=== PATIENT | male | born 1970 | race Caucasian/White ===

== ENCOUNTER → 2024-06-01 | Outpatient (CLI) | payer OTHER, SELFPAY ==
[2024-06-01 08:00] LABS: Collection Type, Urine Clean Catch; Squamous Epithelial Cell,Urine 0 /hpf (0-5)
[2024-06-01 08:29] LABS: Bilirubin,Urine Negative (Negative); Blood,Urine Negative (Negative); Clarity,Urine Clear (Clear/Hazy); Color,Urine Lt-Yellow (Lt Yel-Yel); Glucose, Urine Negative (Negative); Ketones,Urine Negative (Negative); Leukocyte Esterase,Urine Negative (Negative); Nitrite,Urine Negative (Negative); PH,Urine 5.5 (5.0-7.0); Protein,Urine 1+ (Neg - Trace); RBC,Urine 3 /hpf (0-3); Specific Gravity,Urine 1.018 (1.001-1.035); Urobilinogen,Urine Negative mg/dL (0.0-1.0); WBC,Urine 2 /hpf (0-5)
[2024-06-01 08:35] LABS: Glucose Estimated Average 105 mg/dL (80-131); Hemoglobin A1C 5.3 % Hgb (4.8-6.0)
[2024-06-01 08:36] LABS: Basophils % (Auto) 1 % (0-2.5); Eosinophils # (Auto) 0.3 Thou/mm3 (0.0-0.5); Eosinophils % (Auto) 4 % (0-10); Hematocrit 36.2 % (41.0-53.0); Immature Granulocytes % (Auto) 1 % (0-0); Immature Granulocytes Auto 0.04 Thou/mm3 (0.00-0.00); Lymphocytes # (Auto) 1.6 Thou/mm3 (1.0-4.8); Lymphocytes % (Auto) 21 % (10-50); Mean Corpuscular HGB Conc 33.1 g/dl (31.0-37.0); Mean Corpuscular Hemoglobin 29.2 pg (25.0-35.0); Mean Corpuscular Volume 88 fL (80-100); Monocytes # (Auto) 0.6 Thou/mm3 (0.0-0.8); Monocytes % (Auto) 8 % (0-12); Neutrophils % (Auto) 66 % (37-80); Nucleated Red Blood Cell % 0 /100 WBC (0); Platelet Count 190 Thou/mm3 (140-440); RDW Standard Deviation 43.3 fL (35.1-43.9); Red Blood Count 4.11 Miln/mm3 (4.50-5.90); White Blood Count 7.5 Thou/mm3 (3.8-10.6)
[2024-06-01 08:45] LABS: Creatinine MALB Rnd Ur 124 mg/dL (30-125); Microalbumin Creat Ratio 138 mg/gCrea (<30); Microalbumin, Random Urine 171 mg/L (0-300)
[2024-06-01 08:47] LABS: Alanine Aminotransferase 20 U/L (10-49); Albumin, Serum 4.6 gm/dL (3.5-5.0); Alkaline Phosphatase 53 U/L (46-116); Anion Gap 5 (7-16); Aspartate Amino Transferase 17 U/L (0-34); BUN/Creatinine Ratio 12 Ratio (12-20); Bilirubin,Total 0.6 mg/dL (0.3-1.2); Blood Urea Nitrogen 20 mg/dL (9-23); Calcium 10.8 mg/dL (8.3-10.6); Calcium (Corrected) 10.8 mg/dL (8.5-10.1); Carbon Dioxide 26.6 mMol/L (20.0-31.0); Cardiac Risk Estimate 5.8 RATIO (4.0-6.7); Chloride 104 mMol/L (98-107); Cholesterol 134 mg/dL (132-200); Creatinine (Component) 1.7 mg/dL (0.6-1.3); Globulin 2.3 gm/dL (2.3-3.5); Glucose 106 mg/dL (74-106); HDL Cholesterol 23 mg/dL (40-60); LDL Cholesterol,Calculated 55 mg/dL (0-130); Osmolality,Calculated 274 (275-295); Potassium 5.1 mMol/L (3.4-5.1); Sodium 136 mMol/L (136-145); Total Protein 6.9 gm/dL (5.7-8.2); Triglycerides 278 mg/dL (30-150); eGFR 47 See Note
== END | disposition home or self-care (01) ==
PROVIDERS: PCP Internal Medicine; Referring Provider Internal Medicine; Visit Provider Internal Medicine
DX: N17.9 Acute kidney failure, unspecified (principal); I10 Essential (primary) hypertension; E78.5 Hyperlipidemia, unspecified; E11.9 Type 2 diabetes mellitus without complications
CPT/HCPCS: 36415; 80053; 80061; 81001; 82043; 82570; 83036; 85025

== ENCOUNTER → 2024-10-06 | Outpatient (CLI) | payer OTHER, SELFPAY ==
[2024-10-06 11:00] LABS: Collection Type, Urine Clean Catch
[2024-10-06 11:20] LABS: Basophils % (Auto) 1 % (0-2.5); Eosinophils # (Auto) 0.2 Thou/mm3 (0.0-0.5); Eosinophils % (Auto) 3 % (0-10); Hematocrit 34.8 % (41.0-53.0); Hemoglobin 11.4 g/dL (13.5-16.0); Immature Granulocytes % (Auto) 0 % (0-0); Immature Granulocytes Auto 0.02 Thou/mm3 (0.00-0.00); Lymphocytes # (Auto) 1.6 Thou/mm3 (1.0-4.8); Lymphocytes % (Auto) 22 % (10-50); Mean Corpuscular HGB Conc 32.8 g/dl (31.0-37.0); Mean Corpuscular Volume 86 fL (80-100); Monocytes # (Auto) 0.5 Thou/mm3 (0.0-0.8); Monocytes % (Auto) 7 % (0-12); Neutrophils # (Auto) 4.9 Thou/mm3 (1.8-7.7); Neutrophils % (Auto) 68 % (37-80); Nucleated Red Blood Cell % 0 /100 WBC (0); Platelet Count 141 Thou/mm3 (140-440); RDW Standard Deviation 42.8 fL (35.1-43.9); Red Blood Count 4.07 Miln/mm3 (4.50-5.90); White Blood Count 7.2 Thou/mm3 (3.8-10.6)
[2024-10-06 11:25] LABS: Bilirubin,Urine Negative (Negative); Blood,Urine Negative (Negative); Clarity,Urine Clear (Clear/Hazy); Color,Urine Lt-Yellow (Lt Yel-Yel); Glucose, Urine Negative (Negative); Ketones,Urine Negative (Negative); Leukocyte Esterase,Urine Negative (Negative); Nitrite,Urine Negative (Negative); PH,Urine 6.5 (5.0-7.0); Protein,Urine Trace (Neg - Trace); RBC,Urine 2 /hpf (0-3); Specific Gravity,Urine 1.022 (1.001-1.035); Squamous Epithelial Cell,Urine < 1 /hpf (0-5); Urobilinogen,Urine Negative mg/dL (0.0-1.0); WBC,Urine 1 /hpf (0-5)
[2024-10-06 11:48] LABS: Anion Gap 8 (7-16); BUN/Creatinine Ratio 15 Ratio (12-20); Blood Urea Nitrogen 23 mg/dL (9-23); Calcium 9.1 mg/dL (8.3-10.6); Calcium (Corrected) 9.1 mg/dL (8.5-10.1); Carbon Dioxide 29.7 mMol/L (20.0-31.0); Chloride 102 mMol/L (98-107); Creatinine (Component) 1.5 mg/dL (0.6-1.3); Glucose 140 mg/dL (74-106); Osmolality,Calculated 285 (275-295); Phosphorous 3.4 mg/dL (2.4-5.1); Potassium 4.4 mMol/L (3.4-5.1); Sodium 140 mMol/L (136-145); eGFR 55 See Note
== END | disposition home or self-care (01) ==
LOC: COPL 10:29
PROVIDERS: PCP Internal Medicine; Referring Provider Internal Medicine; Visit Provider Internal Medicine
DX: E11.9 Type 2 diabetes mellitus without complications (principal); I10 Essential (primary) hypertension; E78.5 Hyperlipidemia, unspecified
CPT/HCPCS: 36415; 80069; 81001; 85025

== ENCOUNTER → 2024-12-01 | Outpatient (CLI) | payer OTHER, SELFPAY ==
[2024-12-01 08:14] LABS: Collection Type, Urine Clean Catch; Squamous Epithelial Cell,Urine 0 /hpf (0-5)
[2024-12-01 08:47] LABS: Basophils % (Auto) 1 % (0-2.5); Eosinophils # (Auto) 0.2 Thou/mm3 (0.0-0.5); Eosinophils % (Auto) 3 % (0-10); Hematocrit 34.5 % (41.0-53.0); Hemoglobin 11.8 g/dL (13.5-16.0); Immature Granulocytes % (Auto) 0 % (0-0); Immature Granulocytes Auto 0.03 Thou/mm3 (0.00-0.00); Lymphocytes # (Auto) 1.5 Thou/mm3 (1.0-4.8); Lymphocytes % (Auto) 22 % (10-50); Mean Corpuscular HGB Conc 34.2 g/dl (31.0-37.0); Mean Corpuscular Hemoglobin 28.3 pg (25.0-35.0); Mean Corpuscular Volume 83 fL (80-100); Monocytes # (Auto) 0.5 Thou/mm3 (0.0-0.8); Monocytes % (Auto) 8 % (0-12); Neutrophils # (Auto) 4.5 Thou/mm3 (1.8-7.7); Neutrophils % (Auto) 67 % (37-80); Nucleated Red Blood Cell % 0 /100 WBC (0); Platelet Count 123 Thou/mm3 (140-440); RDW Standard Deviation 40.5 fL (35.1-43.9); Red Blood Count 4.17 Miln/mm3 (4.50-5.90); White Blood Count 6.8 Thou/mm3 (3.8-10.6)
[2024-12-01 08:57] LABS: Bilirubin,Urine Negative (Negative); Blood,Urine Negative (Negative); Clarity,Urine Clear (Clear/Hazy); Color,Urine Lt-Yellow (Lt Yel-Yel); Glucose, Urine Negative (Negative); Ketones,Urine Negative (Negative); Leukocyte Esterase,Urine Negative (Negative); Nitrite,Urine Negative (Negative); Protein,Urine 1+ (Neg - Trace); RBC,Urine 1 /hpf (0-3); Specific Gravity,Urine 1.018 (1.001-1.035); Urobilinogen,Urine Negative mg/dL (0.0-1.0); WBC,Urine 3 /hpf (0-5)
[2024-12-01 08:59] LABS: Glucose Estimated Average 111 mg/dL (80-131); Hemoglobin A1C 5.5 % Hgb (4.8-6.0)
[2024-12-01 09:00] LABS: Creatinine,Random Urine 117 mg/dL (30-125); Protein Total, Random Urine 100 mg/dL (1-14)
[2024-12-01 09:03] LABS: Prostate Specific Antigen 0.75 ng/mL (0-4.00)
[2024-12-01 09:14] LABS: Vitamin B12 406 pg/mL (211-911); Vitamin D 25 Hydroxy Total 24.7 ng/mL (7.3-40.2)
[2024-12-01 09:16] LABS: Alanine Aminotransferase 16 U/L (10-49); Albumin/Globulin Ratio 1.7 (1.2-2.2); Alkaline Phosphatase 82 U/L (46-116); Anion Gap 6 (7-16); Aspartate Amino Transferase 15 U/L (0-34); BUN/Creatinine Ratio 13 Ratio (12-20); Bilirubin,Total 0.5 mg/dL (0.3-1.2); Blood Urea Nitrogen 16 mg/dL (9-23); Calcium 9.4 mg/dL (8.3-10.6); Calcium (Corrected) 9.4 mg/dL (8.5-10.1); Carbon Dioxide 27.6 mMol/L (20.0-31.0); Cardiac Risk Estimate 5.4 RATIO (4.0-6.7); Chloride 105 mMol/L (98-107); Cholesterol 118 mg/dL (132-200); Creatinine (Component) 1.2 mg/dL (0.6-1.3); Globulin 2.4 gm/dL (2.3-3.5); Glucose 88 mg/dL (74-106); HDL Cholesterol 22 mg/dL (40-60); Osmolality,Calculated 277 (275-295); Potassium 4.2 mMol/L (3.4-5.1); Sodium 139 mMol/L (136-145); Total Protein 6.4 gm/dL (5.7-8.2); Triglycerides 417 mg/dL (30-150); Uric Acid 9.2 mg/dL (3.7-9.2); eGFR > 60 See Note
== END | disposition home or self-care (01) ==
LOC: COPL 07:32
PROVIDERS: PCP Internal Medicine; Referring Provider Internal Medicine; Visit Provider Internal Medicine
DX: I12.9 Hypertensive chronic kidney disease with stage 1 through stage 4 chronic kidney disease, or unspecified chronic kidney disease (principal); E11.22 Type 2 diabetes mellitus with diabetic chronic kidney disease; N18.30 Chronic kidney disease, stage 3 unspecified; E78.5 Hyperlipidemia, unspecified
CPT/HCPCS: 36415; 80053; 80061; 81001; 82306; 82570; 82607; 83036; 84153; 84156; 84443; 84550; 85025

== ENCOUNTER → 2024-12-14 | Outpatient (CLI) | payer OTHER, SELFPAY ==
--- NOTE | 2024-12-14 10:45 | XR_ITS ---
Examination: Prostate sonography complete TECHNIQUE: Transabdominal sonographic images prostate Date and time: December 15, 2023 1102 hours INDICATIONS: Diagnosis benign prostatic hypertrophy 3 months with difficulty urinating FINDINGS: Prostate 4.3 x 3.5 x 3.3 cm volume 26 cc No prostate nodules IMPRESSION: Mild to moderate prostatomegaly No prostate nodules
== END | disposition home or self-care (01) ==
LOC: CDIM 10:38
PROVIDERS: PCP Internal Medicine; Referring Provider Internal Medicine; Visit Provider Internal Medicine
DX: N40.0 Benign prostatic hyperplasia without lower urinary tract symptoms (principal)
CPT/HCPCS: 76873

== ENCOUNTER → 2024-12-19 | Outpatient (CLI) | payer OTHER, SELFPAY ==
--- NOTE | 2024-12-19 11:32 | EKG_ITS ---
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
== END | disposition home or self-care (01) ==
PROVIDERS: PCP Plastic Surgery; Referring Provider Plastic Surgery; Visit Provider Plastic Surgery
DX: S63.652A Sprain of metacarpophalangeal joint of right middle finger, initial encounter (principal); X58.XXXA Exposure to other specified factors, initial encounter
CPT/HCPCS: 93005

== ENCOUNTER → 2024-12-26 | Outpatient (CLI) | payer OTHER, SELFPAY ==
[2024-12-26 09:52] LABS: Anion Gap 12 (7-16); BUN/Creatinine Ratio 13 Ratio (12-20); Blood Urea Nitrogen 16 mg/dL (9-23); Calcium 8.7 mg/dL (8.3-10.6); Carbon Dioxide 25.8 mMol/L (20.0-31.0); Chloride 104 mMol/L (98-107); Creatinine (Component) 1.2 mg/dL (0.6-1.3); Glucose 136 mg/dL (74-106); Osmolality,Calculated 286 (275-295); Potassium 4.4 mMol/L (3.4-5.1); Sodium 142 mMol/L (136-145); eGFR > 60 See Note
== END | disposition home or self-care (01) ==
LOC: COPL 07:20
PROVIDERS: Referring Provider Plastic Surgery; Visit Provider Plastic Surgery
DX: Z01.818 Encounter for other preprocedural examination (principal); S63.652A Sprain of metacarpophalangeal joint of right middle finger, initial encounter; X58.XXXA Exposure to other specified factors, initial encounter
CPT/HCPCS: 36415; 80048

== ENCOUNTER → 2025-01-25 | Outpatient (BNVA) | payer OTHER, SELFPAY | END | disposition home or self-care (01) | PROVIDERS: PCP Internal Medicine; Referring Provider Internal Medicine; Visit Provider Urology | DX: N40.1 Benign prostatic hyperplasia with lower urinary tract symptoms (principal); N13.8 Other obstructive and reflux uropathy; Z80.42 Family history of malignant neoplasm of prostate; E11.9 Type 2 diabetes mellitus without complications; E78.5 Hyperlipidemia, unspecified; I11.0 Hypertensive heart disease with heart failure; I50.22 Chronic systolic (congestive) heart failure; E66.9 Obesity, unspecified; Z68.29 Body mass index [BMI] 29.0-29.9, adult; Z86.73 Personal history of transient ischemic attack (TIA), and cerebral infarction without residual deficits; Z87.891 Personal history of nicotine dependence | CPT/HCPCS: 81003; 99212; G0463 ==

== ENCOUNTER → 2025-02-05 | Outpatient (CLI) | payer OTHER, SELFPAY ==
[2025-02-05 13:26] LABS: Anion Gap 10 (7-16); BUN/Creatinine Ratio 18 Ratio (12-20); Blood Urea Nitrogen 21 mg/dL (9-23); Calcium 8.8 mg/dL (8.3-10.6); Carbon Dioxide 24.8 mMol/L (20.0-31.0); Chloride 106 mMol/L (98-107); Creatinine (Component) 1.2 mg/dL (0.6-1.3); Glucose 127 mg/dL (74-106); Osmolality,Calculated 286 (275-295); Potassium 4.2 mMol/L (3.4-5.1); Sodium 141 mMol/L (136-145); eGFR > 60 See Note
== END | disposition home or self-care (01) ==
LOC: COPL 11:55
PROVIDERS: PCP Internal Medicine; Referring Provider Physician Assistant; Visit Provider Physician Assistant
DX: Z01.818 Encounter for other preprocedural examination (principal); S63.652D Sprain of metacarpophalangeal joint of right middle finger, subsequent encounter; X58.XXXD Exposure to other specified factors, subsequent encounter
CPT/HCPCS: 36415; 80048

== ENCOUNTER → 2025-02-06 | Outpatient (CLI) | payer OTHER, SELFPAY | END | disposition home or self-care (01) | LOC: COPL 12:45 | PROVIDERS: PCP Internal Medicine; Referring Provider Internal Medicine; Visit Provider Internal Medicine | DX: Z00.00 Encounter for general adult medical examination without abnormal findings (principal) | CPT/HCPCS: 36415; 86900; 86901 ==

== ENCOUNTER → 2025-04-12 | Outpatient (CLI) | payer OTHER, SELFPAY ==
[2025-04-12 09:08] LABS: Collection Type, Urine Clean Catch; Squamous Epithelial Cell,Urine 0 /hpf (0-5)
[2025-04-12 09:33] LABS: Bilirubin,Urine Negative (Negative); Blood,Urine Trace (Negative); Clarity,Urine Clear (Clear/Hazy); Color,Urine Lt-Yellow (Lt Yel-Yel); Glucose, Urine Negative (Negative); Hyaline Casts,Urine < 1 /hpf (0-1); Ketones,Urine Negative (Negative); Leukocyte Esterase,Urine Negative (Negative); Nitrite,Urine Negative (Negative); PH,Urine 6.0 (5.0-7.0); Protein,Urine 2+ (Neg - Trace); RBC,Urine 1 /hpf (0-3); Specific Gravity,Urine 1.017 (1.001-1.035); Urobilinogen,Urine Negative mg/dL (0.0-1.0); WBC,Urine 2 /hpf (0-5)
[2025-04-12 09:43] LABS: Glucose Estimated Average 128 mg/dL (80-131); Hemoglobin A1C 6.1 % Hgb (4.8-6.0)
[2025-04-12 09:51] LABS: Creatinine,Random Urine 107 mg/dL (30-125)
[2025-04-12 09:52] LABS: Alanine Aminotransferase 12 U/L (10-49); Albumin, Serum 4.2 gm/dL (3.5-5.0); Albumin/Globulin Ratio 2.0 (1.2-2.2); Alkaline Phosphatase 71 U/L (46-116); Anion Gap 8 (7-16); Aspartate Amino Transferase 13 U/L (0-34); BUN/Creatinine Ratio 17 Ratio (12-20); Bilirubin,Total 0.5 mg/dL (0.3-1.2); Blood Urea Nitrogen 33 mg/dL (9-23); Calcium 9.2 mg/dL (8.3-10.6); Calcium (Corrected) 9.2 mg/dL (8.5-10.1); Carbon Dioxide 24.0 mMol/L (20.0-31.0); Cardiac Risk Estimate 5.3 RATIO (4.0-6.7); Chloride 108 mMol/L (98-107); Cholesterol 128 mg/dL (132-200); Creatinine (Component) 2.0 mg/dL (0.6-1.3); Globulin 2.1 gm/dL (2.3-3.5); Glucose 108 mg/dL (74-106); HDL Cholesterol 24 mg/dL (40-60); Osmolality,Calculated 287 (275-295); Potassium 5.3 mMol/L (3.4-5.1); Sodium 140 mMol/L (136-145); Total Protein 6.3 gm/dL (5.7-8.2); Triglycerides 506 mg/dL (30-150); eGFR 38 See Note
== END | disposition home or self-care (01) ==
LOC: COPL 08:09
PROVIDERS: PCP Internal Medicine; Referring Provider Internal Medicine; Visit Provider Internal Medicine
DX: E11.22 Type 2 diabetes mellitus with diabetic chronic kidney disease (principal); I12.9 Hypertensive chronic kidney disease with stage 1 through stage 4 chronic kidney disease, or unspecified chronic kidney disease; N18.30 Chronic kidney disease, stage 3 unspecified; E78.5 Hyperlipidemia, unspecified
CPT/HCPCS: 36415; 80053; 80061; 81001; 82570; 83036

== ENCOUNTER → 2025-04-23 | Outpatient (CLI) | payer OTHER, SELFPAY ==
[2025-04-23 12:42] LABS: Glucose Estimated Average 143 mg/dL (80-131); Hemoglobin A1C 6.6 % Hgb (4.8-6.0)
== END | disposition home or self-care (01) ==
LOC: COPL 11:07
PROVIDERS: PCP Internal Medicine; Referring Provider Internal Medicine; Visit Provider Internal Medicine
DX: E11.9 Type 2 diabetes mellitus without complications (principal)
CPT/HCPCS: 36415; 83036

== ENCOUNTER 2025-05-02 11:50 | Observation (INO) | payer OTHER, SELFPAY ==
[2025-05-02 11:51] VITALS: BMI 30.3
[2025-05-02 11:59] VITALS: BP 116/75; BP 131/82; PULSE 79; RESP 18; TEMP 37.1; O2SAT 98
--- NOTE | 2025-05-02 12:00 | EKG_ITS ---
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
--- NOTE | 2025-05-02 12:27 | XR_ITS ---
Examination: CT brain head without contrast. 2-D sagittal coronal reconstructions Date and time of exam: May 02, 2025, 1412 hours INDICATIONS: Onset blurry vision with headaches today CTDI: vol (mGy): 51.1 DLP: (mGycm): 1054 Technique: Multiple CT axial sections of the brain have been obtained, 5 mm slice thickness. Contrast has not been administered. 2-D sagittal, coronal reconstructions have been obtained Low dose protocols were performed. One or more of the following dose reduction techniques were used; automated exposure control, adjustment of the mA and/or KV according to patient size, use of iterative reconstruction technique. Findings: No significant ventricular enlargement. Intra-axial or extra-axial hemorrhage density is not seen. No mass effect or midline shift Basal cisterns are not remarkable. Fourth ventricle is midline. Cranial vault intact. Impression: Negative for acute hemorrhage, mass effect or midline shift Advise clinical correlation and follow-up accordingly
--- NOTE | 2025-05-02 12:27 | XR_ITS ---
EXAMINATION: PA lateral chest 2 views TECHNIQUE: Upright PA lateral chest 2 views Date and time: May 02, 2025, 1308 hours INDICATIONS: Low blood pressure today. FINDINGS: Normal heart size The lungs are clear. The osseous structures are intact. IMPRESSION: No active disease
--- NOTE | 2025-05-02 12:27 | PD.EDRME ---
Rapid Medical Screening Exam RME Arrival date/time: 05/02/25 11:50 54-year-old male presents to the Emergency Department for complaint of headache blurry vision generalized fatigue patient was referred to ER for further evaluation Chief Complaint: Dizziness Time Seen by Provider: 05/02/25 15:26 Vital signs: Vital Signs Temperature 37.1 C 05/02/25 11:59 Pulse Rate 79 05/02/25 11:59 Respiratory Rate 18 05/02/25 11:59 Blood Pressure 131/82 H 05/02/25 11:59 Pulse Oximetry (%) 98 05/02/25 11:59 Oxygen Delivery Method Room Air 05/02/25 11:59 MD Attestation MD Attestation Patient seen and examined with ANNA Stone. Admitted for BATSHEVA.
[2025-05-02 12:56] LABS: Basophils # (Auto) 0.0 Thou/mm3 (0.0-0.2); Basophils % (Auto) 1 % (0-2.5); Eosinophils # (Auto) 0.3 Thou/mm3 (0.0-0.5); Eosinophils % (Auto) 3 % (0-10); Hematocrit 33.3 % (41.0-53.0); Hemoglobin 11.4 g/dL (13.5-16.0); Immature Granulocytes Auto 0.03 Thou/mm3 (0.00-0.00); Lymphocytes # (Auto) 2.1 Thou/mm3 (1.0-4.8); Lymphocytes % (Auto) 26 % (10-50); Mean Corpuscular HGB Conc 34.2 g/dl (31.0-37.0); Mean Corpuscular Hemoglobin 30.0 pg (25.0-35.0); Mean Corpuscular Volume 88 fL (80-100); Monocytes # (Auto) 0.7 Thou/mm3 (0.0-0.8); Monocytes % (Auto) 8 % (0-12); Neutrophils # (Auto) 5.1 Thou/mm3 (1.8-7.7); Neutrophils % (Auto) 62 % (37-80); Nucleated Red Blood Cell # 0.00 Thou/mm3 (0.00-0.00); Nucleated Red Blood Cell % 0 /100 WBC (0); Platelet Count 127 Thou/mm3 (140-440); RDW Standard Deviation 45.2 fL (35.1-43.9); Red Blood Count 3.80 Miln/mm3 (4.50-5.90); White Blood Count 8.3 Thou/mm3 (3.8-10.6)
[2025-05-02 13:07] LABS: Collection Type, Urine Clean Catch
[2025-05-02 13:13] LABS: INR 1.0 (0.9-1.3); Partial Thromboplastin Time 23.9 Seconds (22.0-36.0); Prothrombin Time 10.3 Seconds (9.0-12.2)
[2025-05-02 13:15] LABS: B-Type Natriuretic Peptide < 20 pg/mL (0-100)
[2025-05-02 13:17] LABS: Alanine Aminotransferase 12 U/L (10-49); Albumin, Serum 4.7 gm/dL (3.5-5.0); Albumin/Globulin Ratio 1.9 (1.2-2.2); Alkaline Phosphatase 86 U/L (46-116); Anion Gap 8 (7-16); Aspartate Amino Transferase 14 U/L (0-34); BUN/Creatinine Ratio 14 Ratio (12-20); Bilirubin,Total 0.8 mg/dL (0.3-1.2); Blood Urea Nitrogen 30 mg/dL (9-23); Calcium 9.7 mg/dL (8.3-10.6); Calcium (Corrected) 9.7 mg/dL (8.5-10.1); Carbon Dioxide 25.5 mMol/L (20.0-31.0); Chloride 106 mMol/L (98-107); Creatinine (Component) 2.2 mg/dL (0.6-1.3); Estimated Creatinine Clearance 38.4 mL/min (>60); Globulin 2.5 gm/dL (2.3-3.5); Glucose 95 mg/dL (74-106); Magnesium 1.5 mg/dL (1.6-2.6); Osmolality,Calculated 283 (275-295); Potassium 4.8 mMol/L (3.4-5.1); Sodium 139 mMol/L (136-145); Total Protein 7.2 gm/dL (5.7-8.2); Troponin I < 0.020 ng/mL (0.0-0.045); eGFR 34 See Note
[2025-05-02 13:18] LABS: Amphetamine/Methamp Scrn,U Negative (Negative); Barbiturate Screen,Urine Negative (Negative); Benzodiazepines Screen,Urine Negative (Negative); Benzoylecgonine Screen, Ur Negative (Negative); Fentanyl Screen,Urine Negative (Negative); Opiate Screen,Urine Negative (Negative); THC Screen,Urine Negative (Negative)
[2025-05-02 13:20] LABS: Bilirubin,Urine Negative (Negative); Blood,Urine Negative (Negative); Clarity,Urine Clear (Clear/Hazy); Color,Urine Colorless (Lt Yel-Yel); Culture Indicated,Urine Not Indicated; Glucose, Urine Negative (Negative); Hyaline Casts,Urine < 1 /hpf (0-1); Ketones,Urine Negative (Negative); Leukocyte Esterase,Urine Negative (Negative); Nitrite,Urine Negative (Negative); PH,Urine 6.0 (5.0-7.0); Protein,Urine 1+ (Neg - Trace); RBC,Urine 4 /hpf (0-3); Specific Gravity,Urine 1.009 (1.001-1.035); Squamous Epithelial Cell,Urine < 1 /hpf (0-5); Urobilinogen,Urine Negative mg/dL (0.0-1.0); WBC,Urine < 1 /hpf (0-5)
[2025-05-02 16:33] VITALS: BP 138/90; PULSE 89; RESP 14; TEMP 36.6; O2SAT 99
--- NOTE | 2025-05-02 16:38 | PD.EDADULT ---
ED General RME/HPI General Chief complaint: Dizziness Stated complaint: SENT BY PMD FOR LOW BP Time Seen by Provider: 05/02/25 15:26 Arrival date/time: 05/02/25 11:50 RME / HPI RME / HPI narrative: 05/02/25 11:50 54-year-old male presents to the Emergency Department for complaint of headache blurry vision generalized fatigue patient was referred to ER for further evaluation. DR. KENNEY MAIN ED EVALUATION 54 year old male with history of hypertension, diabetes, hyperlipidemia, GERD presents to the ED referred by PCP Dr. Worrell, for evaluation of low blood pressure today. Patient states he was at a follow up appointment to receive results of recent labs. Noticed while getting his blood pressure taken, he began to have numbness to his lips and left arm. Accompanied by blurred vision. Evidently during that time blood pressure was 87/62 and repeat was 80/40. Dr. Worrell advised he come to the ED for IV fluids and further evaluation. Related Data Home Medications ?Medication ?Instructions ?Recorded ?Confirmed fenofibrate 160 mg tablet 160 mg PO HS 01/19/24 01/25/25 glipizide 5 mg tablet 5 mg PO QDAY 01/19/24 01/25/25 lisinopril 20 mg tablet 20 mg PO QDAY 01/19/24 01/25/25 mycophenolate mofetil 250 mg 500 mg PO BID 01/19/24 01/25/25 capsule rosuvastatin 20 mg tablet 20 mg PO QDAY 01/19/24 01/25/25 albuterol sulfate 90 mcg/actuation 1 puff inhalation BID PRN 03/30/24 01/25/25 aerosol inhaler Shortness Of Breath Or Wheezing bisacodyl 5 mg tablet 5 mg PO QDAY PRN Constipation 03/30/24 01/25/25 ergocalciferol (vitamin D2) 1,250 1,250 mcg PO QWEEK 03/30/24 01/25/25 mcg (50,000 unit) capsule (Vitamin D2) metoclopramide HCl 5 mg tablet 5 mg PO QID 03/30/24 01/25/25 (Reglan) tirzepatide 2.5 mg/0.5 mL 2.5 mg subcut QWEEK 03/30/24 01/25/25 subcutaneous pen injector (Fawad) Previous Rx's ?Medication ?Instructions ?Recorded docusate sodium 100 mg capsule 100 mg PO BID #40 caps 03/31/24 (Colace) hydromorphone 2 mg tablet 2 mg PO Q6H PRN pain (scale score 03/31/24 7-10) #15 tabs ibuprofen 600 mg tablet 600 mg PO Q8H PRN pain (scale 03/31/24 score 4-6) #15 tabs Allergies Allergy/AdvReac Type Severity Reaction Status Date / Time codeine Allergy Swelling Verified 05/02/25 11:54 of Lip/Tongue/Throat Penicillins Allergy Swelling Verified 05/02/25 11:54 of Lip/Tongue/Throat Review of Systems Review of Systems Systems Reviewed: All systems reviewed, normal except as documented Past Medical History Past Medical History NEUROLOGIC: Positive Neurological Disorders and Cerebrovascular Accident (10 yrs ago, no residual) CARDIAC: Positive Cardiac Disorders, Hypercholesterolemia and Hypertension RESPIRATORY: Positive Asthma GASTROINTESTINAL: Positive Gastrointestinal Disorders (enlarged liver), Pancreatitis (pt was told pancreas is swollen), Gall Bladder Disease and Obesity GENITOURINARY: Positive Genitourinary Disorders and Renal Disease MUSCULOSKELETAL: Positive Musculoskeletal Disorders, Carpal Tunnel Syndrome ( tendon surgery on left hand ) and Fractures (right hand x5 times no sx) ENDOCRINE: Positive Endocrine Disorders and Diabetes Mellitus Type 2 OTHER HISTORY: Positive Hospitalization (CVA, surgery), Blood Transfusions and Chicken Pox Family History FAMILY HISTORY: Positive Family Cardiac Disorders, Family Cancer, Family Surgery and Family Anesthesia Reaction Surgical History SURGICAL: Positive Angiogram (coronary, 2 small arteries clotted, no stents 10 yrs ago), Adenoidectomy and Abdominal Surgery (ex lap) Social History SMOKING STATUS: Never smoker ED Exam Narrative Physical exam: GENERAL APPEARANCE: alert and oriented x 4, well-developed, well-nourished, no acute distress HEENT: Normocephalic, atraumatic; pupils equal, round, reactive to light; EOMI; mucous membranes pink, moist; oropharynx clear NECK: Supple LUNGS: CTABL; no wheezes, no rales, no rhonchi HEART: Regular rate, regular rhythm; normal S1, S2; no murmurs ABDOMEN: non distended; normal BS; soft, no tenderness, no guarding, no rebound; no masses, no organomegaly, no hernia EXTREMITIES: atraumatic; no edema NEUROLOGIC: awake; alert and oriented x4; cranial nerves II-XII grossly intact; no focal sensory or motor deficits PSYCHIATRIC: appropriate mood and affect SKIN: warm, dry, normal color; no rashes Course Course Course Narrative: 1533p: I spoke with patients PCP Dr. Worrell. Discussed patients PMHx, HPI, ED course, exam findings, labs, and radiology results. She agrees to accept the patient for admission. Quality Measures none Orders Category Date Time Status EKG (ED ONLY) *Do not use* NOW Care 05/02/25 12:[address] head/brain wo con Stat Exams 05/02/25 12:27 Completed EKG (ED Only) Stat Exams 05/02/25 12:00 Draft XR chest 2V Stat Exams 05/02/25 12:27 Completed B-Type Natriuretic Peptide Stat Lab 05/02/25 12:39 Completed CBC Stat Lab 05/02/25 12:39 Completed Comprehensive Metabolic Panel Stat Lab 05/02/25 12:39 Completed Drug Screen,Urine Stat Lab 05/02/25 12:54 Completed Magnesium Stat Lab 05/02/25 12:39 Completed Partial Thromboplastin Time Stat Lab 05/02/25 12:39 Completed Prothrombin Time with INR Stat Lab 05/02/25 12:39 Completed Troponin I Stat Lab 05/02/25 12:39 Completed Urinalysis, C/S if Indicated Stat Lab 05/02/25 12:54 Completed Magnesium Sulfate 2 GM Ivpb [Magnesium Sulfate Ivpb] Med 05/02/25 15:28 Discontinued 2 gm in 50 ml IV X1 Vital Signs Vital signs: Vital Signs Temperature 98.8 F 05/02/25 11:59 Pulse Rate 79 05/02/25 11:59 Respiratory Rate 18 05/02/25 11:59 Blood Pressure 131/82 H 05/02/25 11:59 Pulse Oximetry (%) 98 05/02/25 11:59 Oxygen Delivery Method Room Air 05/02/25 11:59 Pulse ox is 98% on room air which is adequate. Discharge Plan Plan Patient Disposition: Admit Acute Care w/in Hospital Discharge Disposition comment: Dr. Worrell to admit Problem List Clinical Impression: Acute kidney injury MDM Narrative MDM hospital course (for use when minimal MDM required): Allyson Ortiz am scribing for and in the presence of Dr. Kenney. Clinical Information Provided by: patient Medical Records reviewed [facility] Meds/Rx considered, not ordered None Labs/Rad/Tests considered, not ordered None Chronic Illness/Social Conditions which may negatively complicate care or outcome(s)-explain: None or not applicable EKG Interpretation EKG #1: EKG Interpretation: EKG @ 12:20p. Sinus rhythm, rate 63, no STEMI. Labs Labs: interpreted by oh Lab(s) Interpretation(s): Worsening kidney function Imaging Imaging Interpretation(s): Ordering Physician: Becki BROOKS)Chase NP Date of Service: 05/02/25 Procedure(s): XR chest 2V Accession Number(s): [id number] cc: Becki BROOKS)Chase NP; Errol Banda MD; Prachi Worrell MD~ EXAMINATION: PA lateral chest 2 views TECHNIQUE: Upright PA lateral chest 2 views Date and time: May 02, 2025, 1308 hours INDICATIONS: Low blood pressure today. FINDINGS: Normal heart size The lungs are clear. The osseous structures are intact. IMPRESSION: No active disease Dictated By: Errol Banda MD Signed By: <Electronically signed by Errol Banda MD in OV> 05/02/25 1324 Ordering Physician: Becki BROOKS)Chase NP Date of Service: 05/02/25 Procedure(s): CT head/brain wo con Accession Number(s): [id number] cc: Chase Connell NP, NP; Errol Banda MD; Prachi Worrell MD~ Examination: CT brain head without contrast. 2-D sagittal coronal reconstructions Date and time of exam: May 02, 2025, 1412 hours INDICATIONS: Onset blurry vision with headaches today CTDI: vol (mGy): 51.1 DLP: (mGycm): 1054 Technique: Multiple CT axial sections of the brain have been obtained, 5 mm slice thickness. Contrast has not been administered. 2-D sagittal, coronal reconstructions have been obtained Low dose protocols were performed. One or more of the following dose reduction techniques were used; automated exposure control, adjustment of the mA and/or KV according to patient size, use of iterative reconstruction technique. Findings: No significant ventricular enlargement. Intra-axial or extra-axial hemorrhage density is not seen. No mass effect or midline shift Basal cisterns are not remarkable. Fourth ventricle is midline. Cranial vault intact. Impression: Negative for acute hemorrhage, mass effect or midline shift Advise clinical correlation and follow-up accordingly Dictated By: Errol Banda MD Signed By: <Electronically signed by Errol Banda MD in OV> 05/02/25 1502 Medication Administration(s) Medication Administration History Dextrose (Dextrose 50%-Water Inj 50 Ml Syringe) 25 ml IV Q15MIN PRN PRN Reason: BG 50-70 responsive npo pt Stop: 06/01/25 15:35 Dextrose (Dextrose 50%-Water Inj 50 Ml Syringe) 50 ml IV Q15MIN PRN PRN Reason: BG <50 OR BG <70 & pt unresponsive Stop: 06/01/25 15:35 Glucagon (Glucagon Inj 1 Mg Vial) 1 mg IM Q15MIN PRN PRN Reason: BG <70, and no IV access Sodium Chloride (Ns) 1,000 mls @ 100 mls/hr IV .Q10H MERISSA Stop: 06/01/25 15:34 Insulin Human Lispro (Insulin Lispro (Admelog) 1 Unit/0.01 Ml Unit) 0 unit SC AC MERISSA; Protocol Stop: 06/01/25 16:59 Discontinued Medications Magnesium Sulfate (Magnesium Sulfate Ivpb) 2 gm in 50 mls @ 25 mls/hr IV X1 ONE Stop: 05/02/25 17:27 Sodium Chloride (Ns) 1,000 mls @ 999 mls/hr IV .Q1H1M ONE Stop: 05/02/25 16:35 See above Diagnosis Diagnoses ruled out and/or further discussions: Acute kidney injury
--- NOTE | 2025-05-02 17:03 | PD.NEPHHP ---
Documentation for date of: 05/02/25 History of Present Illness History of Present Illness Chief complaint: Dizziness, lightheadedness, low blood pressure History of present illness: Mr. 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 Blood pressure was 87/62 and repeat blood pressure was 80/40. Patient was having symptoms of hypotension-dizziness, lightheadedness, blurry vision. Patient stated his appetite has been low in the last few days. Sending to the emergency department for IV fluids and workup for BATSHEVA. Home medications include albuterol, Colace, vitamin D, fenofibrate, glipizide, hydromorphone, ibuprofen, lisinopril, Mounjaro, Reglan, CellCept, rosuvastatin Blood pressure in the emergency department 116/75, heart rate 74. WBC 8.3, hemoglobin 11.4, platelets 127. Sodium 139, potassium 4.8, BUN 30, creatinine 2.2, calcium 9.7, magnesium 1.5, LFTs normal, urinalysis shows 1+ protein urine tox screen negative. Head CT negative. Chest x-ray negative. EKG normal sinus rhythm. Patient admitted with a diagnosis of BATSHEVA Review of Systems Review of Systems Narrative Review of Systems: CONSTITUTIONAL: Patient denies any fever, chills. Complaining of fatigue HEENT: Denies any visual disturbances or hearing problems. CARDIOVASCULAR: Patient denies any chest pain, shortness of breath, swelling in the lower extremities. PULMONARY: Patient denies any shortness of breath, cough. GASTROINTESTINAL: Patient denies any abdominal pain, constipation, nausea, vomiting, diarrhea. GENITOURINARY: Patient denies any urinary symptoms of burning or frequency or hematuria, denies any form in the urine. SKIN: Denies any rash. MUSCULOSKELETAL: Denies any muscular skeletal problems of joint pains. NEUROLOGICAL: Denies any neurological problems of strokes, seizures or confusion. Denies any memory problems. PSYCHIATRIC: Denies any depression or anxiety. LYMPHATICS : No lymphadenopathy Past Medical History Past Medical History NEUROLOGIC: Positive Neurological Disorders and Cerebrovascular Accident; Negative Seizures CARDIAC: Positive Cardiac Disorders, Hypercholesterolemia and Hypertension; Negative Congestive Heart Failure RESPIRATORY: Positive Asthma; Negative Chronic Obstructive Pulmonary Disease (COPD) GASTROINTESTINAL: Positive Gastrointestinal Disorders, Pancreatitis, Gall Bladder Disease and Obesity; Negative Hepatitis GENITOURINARY: Positive Genitourinary Disorders and Renal Disease MUSCULOSKELETAL: Positive Musculoskeletal Disorders, Carpal Tunnel Syndrome and Fractures ENDOCRINE: Positive Endocrine Disorders and Diabetes Mellitus Type 2; Negative Diabetes Mellitus Type 1 HEMATOLOGIC: Negative Blood Disorders OTHER HISTORY: Positive Hospitalization, Blood Transfusions and Chicken Pox; Negative Autoimmune Disease, Shingles, Blood Transfusion Reaction, Anesthesia Reactions or Cancer Family History FAMILY HISTORY: Positive Family Cardiac Disorders, Family Cancer, Family Surgery and Family Anesthesia Reaction; Negative Family Psychiatric Problems, Family Respiratory Disorders or Family Gastrointestinal Problems Surgical History SURGICAL: Positive Angiogram, Adenoidectomy and Abdominal Surgery Social History SMOKING STATUS: Never smoker Meds Home Medications and Allergies Home Medications ?Medication ?Instructions ?Recorded ?Confirmed ?Type fenofibrate 160 mg tablet 160 mg PO HS 01/19/24 01/25/25 History glipizide 5 mg tablet 5 mg PO QDAY 01/19/24 01/25/25 History lisinopril 20 mg tablet 20 mg PO QDAY 01/19/24 01/25/25 History mycophenolate mofetil 250 mg 500 mg PO BID 01/19/24 01/25/25 History capsule rosuvastatin 20 mg tablet 20 mg PO QDAY 01/19/24 01/25/25 History albuterol sulfate 90 mcg/actuation 1 puff inhalation BID PRN 03/30/24 01/25/25 History aerosol inhaler Shortness Of Breath Or Wheezing bisacodyl 5 mg tablet 5 mg PO QDAY PRN Constipation 03/30/24 01/25/25 History ergocalciferol (vitamin D2) 1,250 1,250 mcg PO QWEEK 03/30/24 01/25/25 History mcg (50,000 unit) capsule (Vitamin D2) metoclopramide HCl 5 mg tablet 5 mg PO QID 03/30/24 01/25/25 History (Reglan) tirzepatide 2.5 mg/0.5 mL 2.5 mg subcut QWEEK 03/30/24 01/25/25 History subcutaneous pen injector (Mounjaro) Allergies Allergy/AdvReac Type Severity Reaction Status Date / Time codeine Allergy Swelling Verified 05/02/25 11:54 of Lip/Tongue/Throat Penicillins Allergy Swelling Verified 05/02/25 11:54 of Lip/Tongue/Throat Exam Vital Signs Temp Pulse Resp BP Pulse Ox O2 Del Method 37.1 C 84 16 133/79 H 97 Room Air 05/02/25 20:17 05/02/25 20:17 05/02/25 20:17 05/02/25 20:17 05/02/25 20:17 05/02/25 20:17 Narrative Exam GENERAL APPEARANCE: Currently in emergency department-dehydrated HEENT: EOMI, PERRLA NECK: Neck supple, no JVD or bruit CARDIOVASCULAR: Heart regular, no murmurs LUNGS/CHEST: Chest clear to auscultation. No rales, rhonchi, wheezing ABDOMEN: Soft, nontender, nondistended. No masses. Normal bowel sounds. EXTREMITIES: No edema, clubbing or cyanosis. SKIN: Skin exam normal without any rashes MUSCULOSKELETAL: Musculoskeletal exam normal PSYCHIATRIC: Normal mood, affect LYMPHATICS: No lymphadenopathy noted NEUROLOGICAL : No neurological deficits Results: Labs 05/02/25 12:39 05/02/25 12:39 Labs: Short CBC 05/02/25 Range/Units 12:39 WBC 8.3 (3.8-10.6) Thou/mm3 Hgb 11.4 L (13.5-16.0) g/dL Hct 33.3 L (41.0-53.0) % Plt Count 127 L (140-440) Thou/mm3 BMP 05/02/25 12:39 Sodium 139 Potassium 4.8 Chloride 106 Carbon Dioxide 25.5 BUN 30 H Creatinine 2.2 H Glucose 95 Calcium 9.7 Cardiac Enzymes 05/02/25 Range/Units 12:39 Troponin I < 0.020 (0.0-0.045) ng/mL Liver Function 05/02/25 Range/Units 12:39 Total Bilirubin 0.8 (0.3-1.2) mg/dL AST 14 (0-34) U/L ALT 12 (10-49) U/L Alkaline Phosphatase 86 (46-116) U/L Albumin 4.7 (3.5-5.0) gm/dL Urine 05/02/25 Range/Units 12:54 Urine Color Colorless A (Lt Yel-Yel) Urine Clarity Clear (Clear/Hazy) Urine pH 6.0 (5.0-7.0) Ur Specific [place] 1.009 (1.001-1.035) Urine Protein 1+ A (Neg - Trace) Urine Glucose (UA) Negative (Negative) Assessment & Plan Assessment and plan (1) Acute kidney injury: Status: Acute Assessment and plan: BATSHEVA secondary to prerenal azotemia. Secondary to decreased p.o. intake. Patient also on ibuprofen. Continue with IV fluids. Renal ultrasound, urine protein/creatinine ordered (2) Stage 3a chronic kidney disease (CKD): Status: Acute Assessment and plan: Underlying CKD from hypertension/diabetes/biopsy-proven membranous nephropathy. (3) HTN (hypertension), benign: Status: Acute Assessment and plan: Patient with hypotension. Hold off on all blood pressure medications. Probably related to hypovolemic hypotension (4) Hyperlipidemia: Status: Acute Assessment and plan: Hold statin (5) Diabetes: Status: Acute Assessment and plan: Accu-Chek, sliding scale. Additional Assessment & Plan Additional Plan: DVT prophylaxis-not needed, ambulate CODE STATUS full code GI prophylaxis not needed Disposition Home Admit to telemetry Quality Measures Quality Measures none
[2025-05-02] MEDS: Magnesium Sulfate 2 GM Ivpb 2 GM/50 ML BAG IV (18:05)
[2025-05-02 18:23] VITALS: BP 120/75; PULSE 91; RESP 20; TEMP 36.9; O2SAT 98
[2025-05-02] MEDS: SODIUM CHLORIDE 0.9% 1000 ML 1,000 ML 999 ML IV (18:40)
[2025-05-02 20:17] VITALS: BP 133/79; PULSE 84; RESP 16; TEMP 37.1; O2SAT 97
[2025-05-02] MEDS: SODIUM CHLORIDE 0.9% 1000 ML 1,000 ML 100 ML IV (20:44)
[2025-05-02 21:45] VITALS: BP 128/87; PULSE 92; RESP 23; TEMP 37.1; O2SAT 100
[2025-05-03] VITALS: BP 106/62; PULSE 97; RESP 18; TEMP 36.6; O2SAT 100
[2025-05-03] LABS: Creatinine,Random Urine 93 mg/dL (30-125); Protein Total, Random Urine 166 mg/dL (1-14)
[2025-05-03 04:00] VITALS: BP 103/56; PULSE 78; RESP 19; TEMP 36.3; O2SAT 100
[2025-05-03 06:00] VITALS: BMI 29.2
[2025-05-03 06:00] LABS: Basophils # (Auto) 0.0 Thou/mm3 (0.0-0.2); Basophils % (Auto) 1 % (0-2.5); Eosinophils # (Auto) 0.2 Thou/mm3 (0.0-0.5); Eosinophils % (Auto) 3 % (0-10); Hematocrit 29.1 % (41.0-53.0); Hemoglobin 9.9 g/dL (13.5-16.0); Immature Granulocytes Auto 0.03 Thou/mm3 (0.00-0.00); Lymphocytes # (Auto) 1.3 Thou/mm3 (1.0-4.8); Lymphocytes % (Auto) 24 % (10-50); Mean Corpuscular HGB Conc 34.0 g/dl (31.0-37.0); Mean Corpuscular Hemoglobin 30.3 pg (25.0-35.0); Mean Corpuscular Volume 89 fL (80-100); Monocytes # (Auto) 0.4 Thou/mm3 (0.0-0.8); Monocytes % (Auto) 8 % (0-12); Neutrophils # (Auto) 3.3 Thou/mm3 (1.8-7.7); Neutrophils % (Auto) 63 % (37-80); Nucleated Red Blood Cell # 0.00 Thou/mm3 (0.00-0.00); Nucleated Red Blood Cell % 0 /100 WBC (0); Platelet Count 104 Thou/mm3 (140-440); RDW Standard Deviation 45.0 fL (35.1-43.9); Red Blood Count 3.27 Miln/mm3 (4.50-5.90); White Blood Count 5.3 Thou/mm3 (3.8-10.6)
[2025-05-03 06:41] LABS: Alanine Aminotransferase 10 U/L (10-49); Albumin, Serum 3.8 gm/dL (3.5-5.0); Albumin/Globulin Ratio 1.9 (1.2-2.2); Alkaline Phosphatase 73 U/L (46-116); Anion Gap 10 (7-16); BUN/Creatinine Ratio 16 Ratio (12-20); Bilirubin,Total 0.7 mg/dL (0.3-1.2); Blood Urea Nitrogen 26 mg/dL (9-23); Calcium 9.2 mg/dL (8.3-10.6); Calcium (Corrected) 9.4 mg/dL (8.5-10.1); Carbon Dioxide 26.2 mMol/L (20.0-31.0); Chloride 106 mMol/L (98-107); Creatinine (Component) 1.6 mg/dL (0.6-1.3); Estimated Creatinine Clearance 51.9 mL/min (>60); Globulin 2.0 gm/dL (2.3-3.5); Glucose 126 mg/dL (74-106); Magnesium 1.8 mg/dL (1.6-2.6); Osmolality,Calculated 289 (275-295); Phosphorous 3.8 mg/dL (2.4-5.1); Potassium 4.7 mMol/L (3.4-5.1); Sodium 142 mMol/L (136-145); Total Protein 5.8 gm/dL (5.7-8.2); eGFR 50 See Note
[2025-05-03 07:03] LABS: Aspartate Amino Transferase < 10 U/L (0-34)
[2025-05-03] MEDS: SODIUM CHLORIDE 0.9% 1000 ML 1,000 ML 100 ML IV ×2 (07:11→20:01)
[2025-05-03 08:00] VITALS: BP 110/69; PULSE 86; PULSE 98; RESP 16; TEMP 36.1; O2SAT 94
--- NOTE | 2025-05-03 08:00 | XR_ITS ---
Examination: Retroperitoneal ultrasound, complete Technique: Multiple high resolution grayscale images of the retroperitoneum obtained, including kidneys and bladder. Exam date and time: May 03, 2025, 1259 hours INDICATIONS: Acute renal failure on laboratory examination 7 years ago FINDINGS: Right kidney 10.2 cm renal cortex 1.4 cm Left kidney 11.5 cm renal cortex 1.5 cm Moderate renal parenchymal scar formation, no hydronephrosis Contracted urinary bladder No prostatomegaly volume 22.3 cc no prostate nodules IMPRESSION: Bilateral renal cortical thinning Moderate bilateral renal parenchymal scar formation
--- NOTE | 2025-05-03 10:17 | ESPR_ITS ---
Documentation for date of: 05/03/25 Subjective Subjective Interval history: Mr. 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 Labs revealed significantly elevated BUN and creatinine. Blood pressure in clinic was 87/62 ? 80/40 mmHg, and he experienced dizziness, lightheadedness, and blurry vision. Appetite had been poor for several days. Sent to ED for IV fluids and evaluation for BATSHEVA. Home medications: albuterol, Colace, vitamin D, fenofibrate, glipizide, hydromorphone, ibuprofen, lisinopril, Mounjaro, Reglan, CellCept, rosuvastatin. 05/03/25: Patient seen and examined today. Reports feeling better overall with improved appetite. Denies dizziness or lightheadedness. Encouraged to increase oral fluid intake. No shortness of breath, chest pain, nausea, or urinary symptoms. Creatinine improved. Magnesium low-Will be replaced. Spoke to -Will plan for 1 more day of IV fluids and discharge in a.m. Ambulate. Suspect patient has a viral illness and seems to be slowly improving. Blood pressure better. Exam Vital Signs Temp Pulse Resp BP Pulse Ox O2 Del Method 97.0 F 86 16 110/69 94 L Room Air 05/03/25 08:00 05/03/25 08:00 05/03/25 08:00 05/03/25 08:00 05/03/25 08:00 05/03/25 08:00 Narrative Exam General: Awake, alert, oriented ?3, in no acute distress HEENT: Mucous membranes slightly dry Neck: No JVD, supple CVS: Regular rate and rhythm, no murmurs Lungs: Clear to auscultation bilaterally, non-labored breathing Abdomen: Soft, nontender, normoactive bowel sounds Extremities: No edema, pulses palpable Skin: Warm, intact, no rash Neuro: No focal deficits, moves all extremities Objective Labs 05/03/25 04:50 05/03/25 04:50 Labs: Laboratory Results - last 24 hr 05/02/25 05/02/25 05/02/25 12:39 12:54 23:26 WBC 8.3 RBC 3.80 L Hgb 11.4 L Hct 33.3 L MCV 88 MCH 30.0 MCHC 34.2 RDW Std Deviation 45.2 H Plt Count 127 L Neut % (Auto) 62 Lymph % (Auto) 26 Curry % (Auto) 8 Eos % (Auto) 3 Baso % (Auto) 1 Neut # (Auto) 5.1 Lymph # (Auto) 2.1 Curry # (Auto) 0.7 Eos # (Auto) 0.3 Baso # (Auto) 0.0 Immature Gran # (Auto) 0.03 H Absolute Nucleated RBC 0.00 Immature Gran % 0 Nucleated RBC % 0 PT 10.3 INR 1.0 APTT 23.9 Sodium 139 Potassium 4.8 Chloride 106 Carbon Dioxide 25.5 Anion Gap 8 BUN 30 H Creatinine 2.2 H Estim Creat Clear Calc 38.4 L eGFR 34 L BUN/Creatinine Ratio 14 Glucose 95 Calculated Osmolality 283 Calcium 9.7 Corrected Calcium 9.7 Phosphorus Magnesium 1.5 L Total Bilirubin 0.8 AST 14 ALT 12 Alkaline Phosphatase 86 Troponin I < 0.020 B-Natriuretic Peptide < 20 Total Protein 7.2 Albumin 4.7 Globulin 2.5 Albumin/Globulin Ratio 1.9 Ur Collection Type Clean Catch Urine Color Colorless A Urine Clarity Clear Urine pH 6.0 Ur Specific [place] 1.009 Urine Protein 1+ A Urine Glucose (UA) Negative Urine Ketones Negative Urine Blood Negative Urine Nitrite Negative Urine Bilirubin Negative Urine Urobilinogen (Auto) Negative Ur Leukocyte Esterase Negative Urine RBC 4 H Urine WBC < 1 Ur Squamous Epith Cells < 1 Urine Bacteria None Hyaline Casts < 1 Ur Culture Indicated? Not Indicated Ur Random Creatinine 93 U Random Total Protein 166 H Urine Opiates Screen Negative Urine Fentanyl Screen Negative Ur Barbiturates Screen Negative U Amphetamin/Meth Scrn Negative U Benzodiazepines Scrn Negative U Cocaine Metab Screen Negative U Marijuana (THC) Screen Negative 05/03/25 04:50 WBC 5.3 RBC 3.27 L Hgb 9.9 L Hct 29.1 L MCV 89 MCH 30.3 MCHC 34.0 RDW Std Deviation 45.0 H Plt Count 104 L Neut % (Auto) 63 Lymph % (Auto) 24 Curry % (Auto) 8 Eos % (Auto) 3 Baso % (Auto) 1 Neut # (Auto) 3.3 Lymph # (Auto) 1.3 Curry # (Auto) 0.4 Eos # (Auto) 0.2 Baso # (Auto) 0.0 Immature Gran # (Auto) 0.03 H Absolute Nucleated RBC 0.00 Immature Gran % 1 H Nucleated RBC % 0 PT INR APTT Sodium 142 Potassium 4.7 Chloride 106 Carbon Dioxide 26.2 Anion Gap 10 BUN 26 H Creatinine 1.6 H D Estim Creat Clear Calc 51.9 L eGFR 50 L BUN/Creatinine Ratio 16 Glucose 126 H Calculated Osmolality 289 Calcium 9.2 Corrected Calcium 9.4 Phosphorus 3.8 Magnesium 1.8 Total Bilirubin 0.7 AST < 10 ALT 10 Alkaline Phosphatase 73 Troponin I B-Natriuretic Peptide Total Protein 5.8 Albumin 3.8 D Globulin 2.0 L Albumin/Globulin Ratio 1.9 Ur Collection Type Urine Color Urine Clarity Urine pH Ur Specific [place] Urine Protein Urine Glucose (UA) Urine Ketones Urine Blood Urine Nitrite Urine Bilirubin Urine Urobilinogen (Auto) Ur Leukocyte Esterase Urine RBC Urine WBC Ur Squamous Epith Cells Urine Bacteria Hyaline Casts Ur Culture Indicated? Ur Random Creatinine U Random Total Protein Urine Opiates Screen Urine Fentanyl Screen Ur Barbiturates Screen U Amphetamin/Meth Scrn U Benzodiazepines Scrn U Cocaine Metab Screen U Marijuana (THC) Screen Quality Measures Quality Measures VTE prophylaxis Assessment & Plan Assessment Current Active Medications: Generic Name Dose Route Start Last Admin Trade Name Freq PRN Reason Stop Dose Admin Dextrose 25 ml 05/02/25 15:36 Dextrose 50%-Water Inj 50 Ml Syringe IV 06/01/25 15:35 Q15MIN PRN BG 50-70 responsive npo pt Dextrose 50 ml 05/02/25 15:36 Dextrose 50%-Water Inj 50 Ml Syringe IV 06/01/25 15:35 Q15MIN PRN BG <50 OR BG <70 & pt unresponsive Glucagon 1 mg 05/02/25 15:36 Glucagon Inj 1 Mg Vial IM Q15MIN PRN BG <70, and no IV access Sodium Chloride 1,000 mls @ 100 mls/hr 05/02/25 15:35 05/03/25 07:11 Ns IV 06/01/25 15:34 100 mls/hr .Q10H MERISSA Administration Insulin Human Lispro 0 unit 05/02/25 17:00 05/03/25 07:44 Insulin Lispro (Admelog) 1 Unit/0.01 Ml Unit SC 06/01/25 16:59 Not Given AC MERISSA Protocol Plan 54-year-old male with history of HTN, DM2, HLD, GERD, and CKD stage III (biopsy- proven membranous nephropathy on CellCept) admitted for BATSHEVA secondary to prerenal azotemia due to poor oral intake and NSAID use. Now clinically improved with ongoing hydration. Creatinine continues to downtrend. # Acute Kidney Injury Likely prerenal azotemia secondary to hypovolemia and NSAID use. Improving with fluids. Plan: * Continue gentle IV fluids for another 24 hours * Encourage oral hydration (water intake emphasized) * Avoid nephrotoxic agents including NSAIDs and contrast * Monitor daily BMP and strict I&O * Renal ultrasound pending * If renal function continues to improve, may discharge tomorrow # Chronic Kidney Disease Baseline creatinine ~1.4; likely related to HTN/DM and biopsy-proven membranous nephropathy. Plan: * Continue CellCept per outpatient wood borer * Avoid further renal insults * Monitor renal function closely as outpatient * Schedule follow-up with nephrology in 2 weeks post-discharge # Hypertension Was hypotensive on presentation, now stable. Plan: * Continue to hold lisinopril and other antihypertensives today * Reassess tomorrow; may restart low-dose lisinopril if renal function and BP stable # Type 2 Diabetes Mellitus Stable glucose; no hypoglycemia. Plan: * Continue insulin sliding scale * Resume glipizide if eating well * Continue diabetic diet # Hyperlipidemia Statin held on admission. Plan: * May resume rosuvastatin on discharge if renal function stable Health Maintenance: DVT prophylaxis: Ambulating GI prophylaxis: Not indicated Code status: Full Disposition: Possible discharge tomorrow if creatinine continues to improve with fluids Follow-up: Outpatient nephrology in 2 weeks with repeat renal panel ----- Plan discussed with attending physician Dr. Anaid Mckeon MD PGY-1 Internal Medicine Attending Provider Attestation/Addendum Patient seen and examined with resident physician Dr. Mckeon. Note reviewed, agree with findings and recommendations. Creatinine improving. Blood pressure better. 1 more day of fluids and plan for discharge tomorrow.
[2025-05-03 12:00] VITALS: BP 128/78; PULSE 105; PULSE 79; RESP 17; TEMP 36.2; O2SAT 97
[2025-05-03] MEDS: Magnesium Sulfate 2 GM Ivpb 2 GM/50 ML BAG IV (13:31)
[2025-05-03 16:00] VITALS: BP 146/82; PULSE 87; PULSE 98; RESP 20; TEMP 36.2; O2SAT 97
[2025-05-03 20:00] VITALS: BP 125/88; PULSE 103; RESP 16; TEMP 36.5; O2SAT 95
[2025-05-03] MEDS: FINASTERIDE 5 MG TABLET PO (20:02)
[2025-05-04] VITALS: BP 114/74; PULSE 89; RESP 12; TEMP 36.4; O2SAT 98
[2025-05-04 04:00] VITALS: BP 117/73; PULSE 85; RESP 12; TEMP 36.7; O2SAT 98
[2025-05-04 05:46] VITALS: BMI 29.2
[2025-05-04] MEDS: SODIUM CHLORIDE 0.9% 1000 ML 1,000 ML 100 ML IV (05:56)
[2025-05-04 06:24] LABS: Basophils # (Auto) 0.0 Thou/mm3 (0.0-0.2); Basophils % (Auto) 1 % (0-2.5); Eosinophils # (Auto) 0.2 Thou/mm3 (0.0-0.5); Eosinophils % (Auto) 4 % (0-10); Hematocrit 28.6 % (41.0-53.0); Hemoglobin 9.9 g/dL (13.5-16.0); Immature Granulocytes Auto 0.01 Thou/mm3 (0.00-0.00); Lymphocytes # (Auto) 1.2 Thou/mm3 (1.0-4.8); Lymphocytes % (Auto) 27 % (10-50); Mean Corpuscular HGB Conc 34.6 g/dl (31.0-37.0); Mean Corpuscular Hemoglobin 30.0 pg (25.0-35.0); Mean Corpuscular Volume 87 fL (80-100); Monocytes # (Auto) 0.4 Thou/mm3 (0.0-0.8); Monocytes % (Auto) 8 % (0-12); Neutrophils # (Auto) 2.6 Thou/mm3 (1.8-7.7); Neutrophils % (Auto) 60 % (37-80); Nucleated Red Blood Cell # 0.00 Thou/mm3 (0.00-0.00); Nucleated Red Blood Cell % 0 /100 WBC (0); Platelet Count 99 Thou/mm3 (140-440); RDW Standard Deviation 43.5 fL (35.1-43.9); Red Blood Count 3.30 Miln/mm3 (4.50-5.90); White Blood Count 4.4 Thou/mm3 (3.8-10.6)
[2025-05-04 06:55] LABS: Alanine Aminotransferase < 7 U/L (10-49); Albumin, Serum 3.5 gm/dL (3.5-5.0); Albumin/Globulin Ratio 1.8 (1.2-2.2); Alkaline Phosphatase 71 U/L (46-116); Anion Gap 8 (7-16); Aspartate Amino Transferase < 8 U/L (0-34); BUN/Creatinine Ratio 14 Ratio (12-20); Bilirubin,Total 0.5 mg/dL (0.3-1.2); Blood Urea Nitrogen 18 mg/dL (9-23); Calcium 8.9 mg/dL (8.3-10.6); Calcium (Corrected) 9.3 mg/dL (8.5-10.1); Carbon Dioxide 23.6 mMol/L (20.0-31.0); Chloride 108 mMol/L (98-107); Creatinine (Component) 1.3 mg/dL (0.6-1.3); Estimated Creatinine Clearance 63.8 mL/min (>60); Globulin 1.9 gm/dL (2.3-3.5); Glucose 119 mg/dL (74-106); Magnesium 1.8 mg/dL (1.6-2.6); Osmolality,Calculated 282 (275-295); Phosphorous 3.5 mg/dL (2.4-5.1); Potassium 5.2 mMol/L (3.4-5.1); Sodium 140 mMol/L (136-145); Total Protein 5.4 gm/dL (5.7-8.2); eGFR > 60 See Note
[2025-05-04 08:00] VITALS: BP 149/86; PULSE 82; PULSE 84; RESP 20; TEMP 36.1; O2SAT 96
--- NOTE | 2025-05-04 09:23 | PC.SS ---
SLIP COVER CUTTER conducted bedside contact with the patient conduct initial assessment and to discuss discharge planning.? Patient confirmed demographic information.? Patient resides at home with spouse, Johana Sutton .? Patient is currently employed.? Patient does not utilize any form of DME to assist with ambulation.? Patient does not utilize home oxygen.? Patient describes the ability to complete ADL?s independently.? Patient identified spouse, Johana Sutton; as medical surrogate decision maker.? Patient?s PCP is Dr. Worrell.? Patient does not participate with dialysis.? Patient does not possess any specialty providers.? Plan is for the patient to return home at the time of discharge.? Family will provide transportation on behalf of the patient.? No further discharge needs identified by the patient.? No further intervention required at this time, social sciences chair will be available to address any further concerns.? Next of Kin: Johana Sutton D/C Plan: Home
[2025-05-04] MEDS: SOD POLYSTYRENE SULFON SUSP 15 GM/60 ML BTL PO (09:50)
--- NOTE | 2025-05-04 11:42 | PD.RESDS ---
Planned Discharge Date 05/04/25 DS: Providers Provider Date of admission: 05/02/25 15:34 Primary care physician: Prachi Worrell MD Admitting Provider: Prachi Worrell MD Attending Provider on Admission: Prachi Worrell MD Attending Provider on DC: Prachi Worrell MD Discharging Provider: Jakub Mckeon MD DS: Diagnosis Problem List Completed Was Problem List Reviewed/Reconciled?: Yes Hospital Course Hospital Course Hospital course: Mr. 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 He reported dizziness, lightheadedness, and low oral intake; BP in clinic was 80/40 mmHg. He was admitted for evaluation of acute kidney injury, presumed secondary to dehydration and NSAID use. He was started on IV fluids, lisinopril and other antihypertensives were held, and nephrology was consulted for management. Over the hospital stay, his renal function steadily improved (creatinine decreased from 2.2 -> 1.3), urine output normalized, and symptoms resolved. On 05/04/2025 day of DC, his vitals were stable (BP 170/73 mmHg, HR 85 bpm). Labs showed Na 140, K 5.2 (treated with 15 g Kayexalate), CO2 23.6, Cr 1.3, Ca 9.3, Mg 1.8, Phos 3.5, Hgb 9.9. Urine protein was elevated at 166 mg/dL. Renal ultrasound revealed left kidney 11.5 cm and right kidney 10.2 cm with moderate bilateral cortical scarring and parenchymal thinning, consistent with chronic changes. Patient was clinically stable, tolerating diet, and ambulating without symptoms. Deemed appropriate for discharge with close outpatient follow-up. Diagnosis during admission: #Acute Kidney Injury #Chronic Kidney Disease #Hypertension #Type 2 Diabetes Mellitus #Hyperlipidemia #Dehydration Care Plan Goals & Follow-Up: -Maintain hydration ? drink at least 2 L water daily and less soda -Avoid NSAIDs or any nephrotoxic medications -Monitor blood pressure at home; bring log to next appointment -Repeat renal panel in 1 week before follow-up visit -Follow up with Primary Care Provider in 1 week -Return to ED if any of the following: lightheadedness, decreased urination, confusion, chest pain, or shortness of breath ----- Plan discussed with attending physician Dr. Anaid Mckeon MD PGY-1 Internal Medicine Status at Discharge Cognitive/behavioral status at discharge: stable Functional status at discharge: independent ambulation Overall status at discharge: patient is back to baseline Time Spent with Patient Time attestation: Total time spent providing and/or coordinating discharge services:35min Time spent: Greater than 30 minutes Exam Vital Signs Temp Pulse Resp BP Pulse Ox O2 Del Method 97.0 F 84 20 149/86 H 96 Room Air 05/04/25 08:00 05/04/25 08:00 05/04/25 08:00 05/04/25 08:00 05/04/25 08:00 05/04/25 04:00 Narrative Exam General: Awake, alert, no acute distress HEENT: Mucous membranes moist Neck: No JVD Heart: Regular rate and rhythm, no murmurs Lungs: Clear to auscultation bilaterally Abdomen: Soft, nontender, nondistended, normal bowel sounds Extremities: No edema or cyanosis Neuro: Non-focal, moves all extremities Discharge Plan Plan Patient Disposition: HOME (Self Care) Care Plan Goals: -Maintain hydration ? drink at least 2 L water daily and less soda -Avoid NSAIDs or any nephrotoxic medications -Monitor blood pressure at home; bring log to next appointment -Repeat renal panel in 1 week before follow-up visit -Follow up with Primary Care Provider in 1 week -Return to ED if any of the following: lightheadedness, decreased urination, confusion, chest pain, or shortness of breath Prescriptions/Referrals Prescriptions/Med Rec: Continued rosuvastatin 20 mg tablet 20 mg PO HS Patient Comments: take 1 tablet by mouth once daily TO LOWER RISK OF HEART ATTACK AND STROKE Trulicity 1.5 mg/0.5 mL pen injector 1.5 mg SUBCUT .weekly Patient Comments: INJECT 1.5MG UNDER THE SKIN WEEKLY pantoprazole 40 mg tablet,delayed release (DR/EC) 40 mg PO DAILY Patient Comments: TAKE 1 TABLET BY MOUTH ONCE DAILY (DME) OneTouch Verio test strips Strip Patient Comments: USE DIRECTED TWICE A DAY finasteride 5 mg tablet 5 mg PO HS Patient Comments: TAKE 1 TABLET BY MOUTH EVERYDAY AT BEDTIME docusate sodium [Colace] 100 mg capsule 100 mg PO BID PRN (Reason: constipation) albuterol sulfate 90 mcg/actuation Hfa Aerosol Inhaler 1 puff INHALATION BID PRN (Reason: Shortness Of Breath Or Wheezing) Discontinued mycophenolate mofetil 250 mg Capsule 750 mg PO BID lisinopril 20 mg tablet 20 mg PO QDAY Patient Comments: take 1 tablet by mouth once daily glipizide 5 mg tablet 5 mg PO QDAY Patient Comments: take 1 tablet by mouth once daily furosemide 20 mg tablet 20 mg PO DAILY Patient Comments: TAKE 1 TABLET BY MOUTH DAILY WATER PILL spironolactone 25 mg tablet 25 mg PO DAILY Patient Comments: TAKE 1 TABLET DAILY Referrals: Prachi Worrell MD [Primary Care Provider, Nephrology] Patient/Caregiver Discharge Instructions Discharge Activity: resume usual activities Education Materials: Acute Kidney Failure Dc Print Language: Belarusian Activity Restrictions/Additional Instructions: f/u with dr. worrell in 1-2 weeks Stand Alone Forms: [facility] Award Info., Patient Portal Info Letter, Work/Release Restrictions Discharge Order Discharge Orders: Discharge (Routine); Ordered 05/04/25 Ordered By: Jakub Mckeon Quality Discharge Quality Measures VTE prophylaxis MD Attestestation MD Attestation Patient seen and examined with resident physician Dr. Mckeon. Note reviewed, agree with findings and recommendations. Patient admitted with BATSHEVA and noted to have hypercalcemia probably related to [place]. Agree with IV fluids. Creatinine tad better today. Thank you [facility] for allowing me to participate in the care of Mr. Ruiz
[2025-05-04 12:00] VITALS: BP 138/93; PULSE 87; PULSE 90; RESP 19; TEMP 36.1; O2SAT 97
== END 2025-05-04 13:55 | disposition home or self-care (01) ==
LOC: SERX 15:26 → SERHOLD 16:46 → S2NX 05-03 06:07 → SERHOLD 05-03 12:22 → S2NX 05-03 12:22
PROVIDERS: Nurse Practitioner Primary Care; Admitting Provider Internal Medicine; Emergency Provider Emergency Medicine; PCP Internal Medicine; Visit Provider Internal Medicine
DX: N17.9 Acute kidney failure, unspecified (principal); E86.0 Dehydration; E11.22 Type 2 diabetes mellitus with diabetic chronic kidney disease; I12.9 Hypertensive chronic kidney disease with stage 1 through stage 4 chronic kidney disease, or unspecified chronic kidney disease; E78.5 Hyperlipidemia, unspecified; N18.31 Chronic kidney disease, stage 3a; E11.43 Type 2 diabetes mellitus with diabetic autonomic (poly)neuropathy; K31.84 Gastroparesis; R42 Dizziness and giddiness
CPT/HCPCS: 36415; 70450; 71046; 76770; 80053; 80307; 81001; 82570; 83735; 83880; 84100; 84156; 84484; 85025; 85610; 85730; 93005; 96361; 96365; 96366; 99284; G0378; J3475; J7030; A9270

== ENCOUNTER → 2025-05-07 | Outpatient (CLI) | payer OTHER, SELFPAY ==
[2025-05-07 13:23] LABS: Basophils # (Auto) 0.0 Thou/mm3 (0.0-0.2); Basophils % (Auto) 1 % (0-2.5); Eosinophils # (Auto) 0.2 Thou/mm3 (0.0-0.5); Eosinophils % (Auto) 4 % (0-10); Hematocrit 32.7 % (41.0-53.0); Hemoglobin 11.2 g/dL (13.5-16.0); Immature Granulocytes Auto 0.03 Thou/mm3 (0.00-0.00); Lymphocytes # (Auto) 1.5 Thou/mm3 (1.0-4.8); Lymphocytes % (Auto) 25 % (10-50); Mean Corpuscular HGB Conc 34.3 g/dl (31.0-37.0); Mean Corpuscular Hemoglobin 30.0 pg (25.0-35.0); Mean Corpuscular Volume 88 fL (80-100); Monocytes # (Auto) 0.5 Thou/mm3 (0.0-0.8); Monocytes % (Auto) 8 % (0-12); Neutrophils # (Auto) 3.7 Thou/mm3 (1.8-7.7); Neutrophils % (Auto) 62 % (37-80); Nucleated Red Blood Cell # 0.00 Thou/mm3 (0.00-0.00); Nucleated Red Blood Cell % 0 /100 WBC (0); Platelet Count 122 Thou/mm3 (140-440); RDW Standard Deviation 45.1 fL (35.1-43.9); Red Blood Count 3.73 Miln/mm3 (4.50-5.90); White Blood Count 5.9 Thou/mm3 (3.8-10.6)
[2025-05-07 13:39] LABS: Alanine Aminotransferase 9 U/L (10-49); Albumin, Serum 4.4 gm/dL (3.5-5.0); Albumin/Globulin Ratio 1.9 (1.2-2.2); Alkaline Phosphatase 75 U/L (46-116); Anion Gap 11 (7-16); Aspartate Amino Transferase 14 U/L (0-34); BUN/Creatinine Ratio 11 Ratio (12-20); Bilirubin,Total 0.5 mg/dL (0.3-1.2); Blood Urea Nitrogen 13 mg/dL (9-23); Calcium 10.3 mg/dL (8.3-10.6); Calcium (Corrected) 10.3 mg/dL (8.5-10.1); Carbon Dioxide 24.4 mMol/L (20.0-31.0); Chloride 105 mMol/L (98-107); Creatinine (Component) 1.2 mg/dL (0.6-1.3); Globulin 2.3 gm/dL (2.3-3.5); Glucose 124 mg/dL (74-106); Osmolality,Calculated 280 (275-295); Potassium 4.9 mMol/L (3.4-5.1); Sodium 140 mMol/L (136-145); Total Protein 6.7 gm/dL (5.7-8.2); eGFR > 60 See Note
== END | disposition home or self-care (01) ==
LOC: COPL 11:58
PROVIDERS: PCP Internal Medicine; Referring Provider Internal Medicine; Visit Provider Internal Medicine
DX: N17.9 Acute kidney failure, unspecified (principal); I10 Essential (primary) hypertension
CPT/HCPCS: 36415; 80053; 85025

== ENCOUNTER → 2025-06-08 | Outpatient (CLI) | payer OTHER, SELFPAY ==
[2025-06-08 11:53] LABS: Collection Type, Urine Catheter
[2025-06-08 12:18] LABS: Albumin, Serum 4.4 gm/dL (3.5-5.0); Anion Gap 11 (7-16); BUN/Creatinine Ratio 15 Ratio (12-20); Blood Urea Nitrogen 20 mg/dL (9-23); Calcium 9.4 mg/dL (8.3-10.6); Calcium (Corrected) 9.4 mg/dL (8.5-10.1); Carbon Dioxide 25.2 mMol/L (20.0-31.0); Chloride 105 mMol/L (98-107); Creatinine (Component) 1.3 mg/dL (0.6-1.3); Glucose 139 mg/dL (74-106); Osmolality,Calculated 285 (275-295); Phosphorous 3.7 mg/dL (2.4-5.1); Potassium 4.9 mMol/L (3.4-5.1); Sodium 141 mMol/L (136-145); eGFR > 60 See Note
[2025-06-08 12:41] LABS: Creatinine,Random Urine 105 mg/dL (30-125); Protein Total, Random Urine 558 mg/dL (1-14)
[2025-06-08 12:44] LABS: Bilirubin,Urine Negative (Negative); Blood,Urine 1+ (Negative); Clarity,Urine Clear (Clear/Hazy); Color,Urine Lt-Yellow (Lt Yel-Yel); Glucose, Urine Negative (Negative); Hyaline Casts,Urine < 1 /hpf (0-1); Ketones,Urine Negative (Negative); Leukocyte Esterase,Urine Negative (Negative); Nitrite,Urine Negative (Negative); PH,Urine 6.0 (5.0-7.0); Protein,Urine 3+ (Neg - Trace); RBC,Urine 3 /hpf (0-3); Specific Gravity,Urine 1.019 (1.001-1.035); Squamous Epithelial Cell,Urine < 1 /hpf (0-5); Urobilinogen,Urine Negative mg/dL (0.0-1.0); WBC,Urine 1 /hpf (0-5)
[2025-06-08 14:32] LABS: Glucose Estimated Average 117 mg/dL (80-131); Hemoglobin A1C 5.7 % Hgb (4.8-6.0)
== END | disposition home or self-care (01) ==
LOC: COPL 09:53
PROVIDERS: PCP Internal Medicine; Referring Provider Internal Medicine; Visit Provider Internal Medicine
DX: N17.9 Acute kidney failure, unspecified (principal); I10 Essential (primary) hypertension; E11.9 Type 2 diabetes mellitus without complications
CPT/HCPCS: 36415; 80069; 81001; 82570; 83036; 84156

== ENCOUNTER 2025-07-09 07:48 | Outpatient (CLI) | payer OTHER, SELFPAY ==
[2025-07-05 10:43] VITALS: BMI 29.7
[2025-07-06 15:19] LABS: Basophils # (Auto) 0.1 Thou/mm3 (0.0-0.2); Basophils % (Auto) 1 % (0-2.5); Eosinophils # (Auto) 0.4 Thou/mm3 (0.0-0.5); Eosinophils % (Auto) 4 % (0-10); Hematocrit 35.7 % (41.0-53.0); Hemoglobin 11.9 g/dL (13.5-16.0); Immature Granulocytes Auto 0.02 Thou/mm3 (0.00-0.00); Lymphocytes # (Auto) 2.0 Thou/mm3 (1.0-4.8); Lymphocytes % (Auto) 23 % (10-50); Mean Corpuscular HGB Conc 33.3 g/dl (31.0-37.0); Mean Corpuscular Hemoglobin 29.0 pg (25.0-35.0); Mean Corpuscular Volume 87 fL (80-100); Monocytes # (Auto) 0.6 Thou/mm3 (0.0-0.8); Monocytes % (Auto) 6 % (0-12); Neutrophils # (Auto) 5.8 Thou/mm3 (1.8-7.7); Neutrophils % (Auto) 66 % (37-80); Nucleated Red Blood Cell # 0.00 Thou/mm3 (0.00-0.00); Nucleated Red Blood Cell % 0 /100 WBC (0); Platelet Count 167 Thou/mm3 (140-440); RDW Standard Deviation 40.4 fL (35.1-43.9); Red Blood Count 4.11 Miln/mm3 (4.50-5.90); White Blood Count 8.9 Thou/mm3 (3.8-10.6)
[2025-07-06 15:27] LABS: Creatinine (Component) 1.5 mg/dL (0.6-1.3); Estimated Creatinine Clearance 55.7 mL/min (>60); eGFR 54 See Note
[2025-07-06 15:30] LABS: INR 1.0 (0.9-1.3); Partial Thromboplastin Time 24.5 Seconds (22.0-36.0); Prothrombin Time 10.4 Seconds (9.0-12.2)
[2025-07-09] VITALS (9 sets, daily range): BP systolic 125–151; BP diastolic 76–99; PULSE 79–92; RESP 15–17; TEMP 36.4–36.6; O2SAT 96–100
--- NOTE | 2025-07-09 08:30 | XR_ITS ---
Examination: CT-guided percutaneous medical renal biopsy lower pole right kidney CT abdomen without intravenous contrast INDICATIONS: Acute kidney failure unspecified this week Date and time of procedure: July 09, 2025, 0927 hours Informed consent provided. A timeout was completed verifying correct patient, procedure, site and positioning. Technique: Axial 3 mm sections were obtained for localization of the lower pole right kidney Appropriate area is marked. The patient's site was prepped and draped in sterile fashion Maximal sterile barrier technique utilized, including hand hygiene Local anesthesia was obtained with 1% lidocaine. Low dose protocols were performed. One or more of the following dose reduction techniques were used; automated exposure control, adjustment of the mA and/or KV according to patient size, use of iterative reconstruction technique. Utilizing CT fluoroscopic guidance 2 core biopsies obtained of the lower pole right kidney Patient appears in stable condition during this procedure. At completion of the procedure, the patient is in satisfactory condition. Estimated blood loss 2 cc Complete pathology report to follow. Impression: Successful CT-guided percutaneous medical renal biopsy lower pole right kidney
[2025-07-09] MEDS: SODIUM CHLORIDE 0.9% 500 ML 500 ML 20 ML IV (09:20)
[2025-07-09] MEDS: fentaNYL CIT INJ 50 mCg/ML AMP 2ML 100 MCG IVP (09:34)
== END 2025-07-09 11:00 | disposition home or self-care (01) ==
LOC: SIRX 07:48
PROVIDERS: Radiology Diagnostic Radiology; PCP Internal Medicine; Referring Provider Internal Medicine; Visit Provider Internal Medicine
DX: I12.9 Hypertensive chronic kidney disease with stage 1 through stage 4 chronic kidney disease, or unspecified chronic kidney disease (principal); N18.9 Chronic kidney disease, unspecified
CPT/HCPCS: 50200; 36415; 77012; 82565; 84520; 85025; 85610; 85730; J3010; J7999